=== PATIENT | male | born 1990 | race Caucasian/White ===

== ENCOUNTER 2018-08-20 12:55 | Emergency (ER) | payer SELFPAY ==
[~2018-08-20 12:55] MED LIST: AMOX-559 PO; CLIN300C99 PO; LOR5/325 PO; PRED20TA6 PO
--- NOTE | 2018-08-20 13:08 | ER Report ---
History and Physical Time Seen By MD: 13:08 Hx. of Stated Complaint: PT SNOWBOARDING WENT OVER A MOUND OF SNOW, FELL ON L SHOULDER, FELT A POP HPI/ROS CHIEF COMPLAINT: Fell on left shoulder while snowboarding HISTORY OF PRESENT ILLNESS: 28 year old male was snowboarding today. Fell onto his left shoulder. Brunt of the fall was on the shoulder, patient hit head also. Was wearing a helmet. When patient got to the end of the run, patient felt his shoulder wasn't right and walked over to life skills educator. Patient felt his clavicle and states there is a bump on it. Pain over the clavicle. No numbness or tingling down the shoulder. REVIEW OF SYSTEMS: Respiratory: No cough, no dyspnea. Cardiovascular: No chest pain, no palpitations. Gastrointestinal: No vomiting, no abdominal pain. Musculoskeletal: No back pain. Allergies: Coded Allergies: No Known Drug Allergies (Unverified , 03/08/16) Home Meds Active Scripts Hydrocodone Bit/Acetaminophen (HYDROCODON-ACETAMINOPHEN 5-325) 1 Each Tablet, 1 EACH PO Q4-6H PRN for PAIN, #12 TAB Prov:SERGIO BATES ENTERPRISE SYSTEMS ADMINISTRATOR 08/20/18 Hydrocodone Bit/Acetaminophen (HYDROCODON-ACETAMINOPHEN 5-325) 1 Each Tablet, 1 EACH PO Q4-6H, #14 TAB Prov:YAKOV FRIEDMAN MINE SURVEYOR 03/08/16 Clindamycin Hcl (CLINDAMYCIN HCL) 300 Mg Capsule, 300 MG PO TID, #30 CAPSULE TAKE 1 CAPSULE 3 TIMES A DAY Prov:YAKOV FRIEDMAN MINE SURVEYOR 03/08/16 Reported Medications Prednisone (PREDNISONE) 20 Mg Tablet, 60 MG PO DAILY, TAB 03/08/16 Amoxicillin/Pot Clav 875-125 Mg Tab (AUGMENTIN 875-125 TABLET) 1 Each Tablet, 1 TAB PO Q12H, TAB 03/08/16 Past Medical/Surgical History Patient does not have any chronic conditions. Patient had surgery on a broken ankle when he was in high school. Hardware was removed two years ago. Reviewed Nurses Notes: Yes Constitutional Vital Sign - Last 24 Hours 08/20/18 08/20/18 08/20/18 08/20/18 13:00 13:03 13:10 13:25 Temp 98.2 Pulse 79 83 104 Resp 20 B/P (MAP) 133/92 133/92 (106) Pulse Ox 98 97 95 O2 Delivery Room Air 08/20/18 08/20/18 08/20/18 08/20/18 13:40 13:42 13:55 14:10 Pulse 85 91 89 B/P (MAP) 152/97 (115) Pulse Ox 97 90 92 Physical Exam General Appearance: The patient is alert, has no immediate need for airway protection and no current signs of toxicity. Patient alerted and oriented. Patient did think it was Thursday instead of Thursday. Eyes: Pupils equal and round no injection. Respiratory: Chest is non tender, lungs are clear to auscultation. Cardiac: regular rate and rhythm Gastrointestinal: Abdomen is soft and non tender, no masses, bowel sounds normal. Musculoskeletal: Neck: Neck is supple and non tender. Extremities have full range of motion and are non tender. Left arm range of motion is diminished due to pain in the clavicle area. Step off palpated over left mid-clavicle. Tender to palpation. Skin: No rashes or lesions. Skin over left clavicle is ecchymotic. DIFFERENTIAL DIAGNOSIS: After history and physical exam differential diagnosis was considered for clavicle fracture, shoulder dislocation, concussion, intracranial bleed Medical Decision Making EKG/Imaging Imaging CT Cervical Spine Indication: False normal bordering. Comparison: None available. Technique: Axial CT imaging of the cervical spine was performed. 2-D sagittal and coronal CT reformats were also obtained. One of the following dose optimization techniques was utilized in the performance of this exam: automated exposure control; adjustment of the mA and/or kV according to the patient's size; or use of an iterative reconstruction technique. Specific details can be referenced in the facility's radiology CT exam operational policy. Findings: The vertebral bodies are aligned. No fracture or facet dislocation. There is minimal degenerative changes seen at the C5-6 level including small osteophytes and mild facet changes. No appreciable sequelae. No other significant degenerative changes. Endplates are maintained. No obvious disc herniation. Prevertebral soft tissues and surrounding soft tissues are unremarkable. Visualized brain is unremarkable. Small cyst/polyp seen in the inferior aspect both maxillary sinuses. The remaining sinuses and mastoids visualized are clear. Impression: 1. No acute osseous or acute alignment abnormality of the cervical spine 2. Small cyst/polyp in each maxillary sinus. Report Dictated By: Alin Govea at 08/20/2018 2:12 PM Report E-Signed By: Alin Govea at 08/20/2018 2:[address] Head without contrast Indication: Fall while snowboarding. Comparison: None available Technique: Axial CT images were obtained through the brain from the skull base to the vertex without administration of IV contrast. Reformatted coronal and sagittal images were also obtained. One of the following dose optimization techniques was utilized in the performance of this exam: automated exposure control; adjustment of the mA and/o r kV according to the patient's size; or use of an iterative reconstruction technique. Specific details can be referenced in the facility's radiology CT exam operational policy. Findings: No evidence of mass, mass effect, or midline shift. No acute intracranial hemorrhage or acute territorial infarction. No extra-axial fluid collection or hydrocephalus. No abnormal density. Hopper /white matter differentiation appears normal. Bony structures show no fractures or lesions. Small cyst/polyp is seen in each maxillary sinus. The remaining sinuses and mastoids visualized are clear. IMPRESSION: 1. No acute intracranial abnormality. No skull fracture. 2. Small cyst/polyp seen in each maxillary sinus. Report Dictated By: Alin Govea at 08/20/2018 2:06 PM Report E-Signed By: Alin Govea at 08/20/2018 2:11 PM Exam type: CLAVICLE LEFT History: Snowboarding accident with pain Comparison: None. Findings: There is oblique fracture to the midshaft left clavicle with 1.6 cm downward displacement of the distal fracture fragment IMPRESSION: 1. Oblique fracture to the midshaft left clavicle with 1.6 cm downward displacement of distal fragment Report Dictated By: Leslye Erickson MD at 08/20/2018 1:50 PM Report E-Signed By: Leslye Erickson MD at 08/20/2018 1:52 PM ED Course/Re-evaluation ED Course Patient was admitted to ED room and placed in a bed. History and physical were obtained. Differential diagnoses were considered. X-ray of the clavicle was obtained. Head and neck CT were obtained. Results were discussed with the patient. Sling was placed on patient. Consult was obtained with Dr. Murray. Referral was given to patient for ortho. Patient discharge instructions given. Patient discharged to home. Decision to Disposition Date: Aug 20, 2018 Decision to Disposition Time: 14:38 Depart Departure Latest Vital Signs Vital Signs Date Time Temp Pulse Resp B/P (MAP) Pulse Ox O2 Delivery O2 Flow Rate FiO2 08/20/18 14:10 89 92 08/20/18 13:42 152/97 (115) 08/20/18 13:00 98.2 20 Room Air Impression: Primary Impression: Closed left clavicular fracture Condition: Improved Disposition: HOME OR SELF-CARE Referrals: CHELLY MURRAY MD New Scripts Hydrocodone Bit/Acetaminophen (HYDROCODON-ACETAMINOPHEN 5-325) 1 Each Tablet 1 EACH PO Q4-6H PRN for PAIN, #12 TAB Prov: SERGIO BATES 08/20/18 Patient Instructions: Clavicle Fracture (ED) Additional Instructions: Limit activity by pain. Ice the shoulder 2-3 times a day for 20-30 minutes. Follow up with [facility], call Thursday to make an appointment. Return to the ER with uncontrollable pain or numbness to the arm. You may take Ibuprofen as needed for pain in addition to the pain medication. Don't take any additional Tylenol while on the pain medication. Wear the sling 23/24 hours a day, take it off to shower. Problem Qualifiers Primary Impression: Closed left clavicular fracture Encounter type: initial encounter Clavicle location: shaft Fracture alignment: displaced Qualified Codes: S42.022A - Displaced fracture of shaft of left clavicle, initial encounter for closed fracture SERGIO BATES Aug 20, 2018 13:08
[2018-08-20] MEDS ORDERED: ONDANSETRON 4 MG/2 ML VIAL IVP ONE (13:30)
[2018-08-20] MEDS ORDERED: MORPHINE 4 MG/ML SDV IVP ONE (13:30)
[2018-08-20 13:42] VITALS: BP 152/97
--- NOTE | 2018-08-20 13:56 | RADIOLOGY IMAGING REPORT ---
FACILITY: [facility] PATIENT NAME: Florseita Zuniga : 1990 MR: [id number] V: [id number] EXAM DATE: ORDERING PHYSICIAN: SERGIO BATES TECHNOLOGIST: [place] [facility] [place] Patient: Floresita Zuniga : 1990 Visit/Account:[id number] Date of Sevice: 08/20/2018 Exam type: CLAVICLE LEFT History: Snowboarding accident with pain Comparison: None. Findings: There is oblique fracture to the midshaft left clavicle with 1.6 cm downward displacement of the dist al fracture fragment IMPRESSION: 1. Oblique fracture to the midshaft left clavicle with 1.6 cm downward displacement of distal fragme nt Report Dictated By: Leslye Erickson MD at 08/20/2018 1:50 PM Report E-Signed By: Leslye Erickson MD at 08/20/2018 1:52 PM WSN:[id number]
--- NOTE | 2018-08-20 14:16 | RADIOLOGY IMAGING REPORT ---
FACILITY: [facility] PATIENT NAME: Floresita Zuniga : 1990 MR: [id number] V: [id number] EXAM DATE: ORDERING PHYSICIAN: SERGIO BATES TECHNOLOGIST: Location: [facility] Patient: Floresita Zuniga : 1990 Visit/Account:[id number] Date of Sevice: 08/20/2018 CT Head without contrast Indication: Fall while snowboarding. Comparison: None available Technique: Axial CT images were obtained through the brain from the skull base to the vertex without administration of IV contrast. Reformatted coronal and sagittal images were also obtained. One of the following dose optimization techniques was utilized in the performance of this exam: autom ated exposure control; adjustment of the mA and/or kV according to the patient's size; or use of an i terative reconstruction technique. Specific details can be referenced in the facility's radiology CT exam operational policy. Findings: No evidence of mass, mass effect, or midline shift. No acute intracranial hemorrhage or acute territorial infarction. No extra-axial fluid collection or hydrocephalus. No abnormal density. Hopper/white matter differentiat ion appears normal. Bony structures show no fractures or lesions. Small cyst/polyp is seen in each maxillary sinus. The remaining sinuses and mastoids visualized are c lear. IMPRESSION: 1. No acute intracranial abnormality. No skull fracture. 2. Small cyst/polyp seen in each maxillary sinus. Report Dictated By: Alin Govea at 08/20/2018 2:06 PM Report E-Signed By: Alin Govea at 08/20/2018 2:11 PM WSN:[id number]
--- NOTE | 2018-08-20 14:24 | RADIOLOGY IMAGING REPORT ---
FACILITY: [facility] [place] PATIENT NAME: Floresita Zuniga : 1990 MR: [id number] V: [id number] EXAM DATE: ORDERING PHYSICIAN: SERGIO BATES TECHNOLOGIST: Location: [facility] [place] Patient: Floresita Zuniga : 1990 Visit/Account:[id number] Date of Sevice: 08/20/2018 CT Cervical Spine Indication: False normal bordering. Comparison: None available. Technique: Axial CT imaging of the cervical spine was performed. 2-D sagittal and coronal CT reforma ts were also obtained. One of the following dose optimization techniques was utilized in the performance of this exam: autom ated exposure control; adjustment of the mA and/or kV according to the patient's size; or use of an i terative reconstruction technique. Specific details can be referenced in the facility's radiology CT exam operational policy. Findings: The vertebral bodies are aligned. No fracture or facet dislocation. There is minimal degenerative brodie nges seen at the C5-6 level including small osteophytes and mild facet changes. No appreciable sequel ae. No other significant degenerative changes. Endplates are maintained. No obvious disc herniation. Prevertebral soft tissues and surrounding soft tissues are unremarkable. Visualized brain is unremark able. Small cyst/polyp seen in the inferior aspect both maxillary sinuses. The remaining sinuses and mastoids visualized are clear. Impression: 1. No acute osseous or acute alignment abnormality of the cervical spine 2. Small cyst/polyp in each maxillary sinus. Report Dictated By: Alin Govea at 08/20/2018 2:12 PM Report E-Signed By: Alin Govea at 08/20/2018 2:18 PM WSN:[id number]
[2018-08-20] MEDS ORDERED: HYDR-385 PO (14:39)
== END 2018-08-20 15:00 | disposition home or self-care (01) ==
LOC: ER 13:34
DX: S42.022A Displaced fracture of shaft of left clavicle, initial encounter for closed fracture (principal); W18.30XA Fall on same level, unspecified, initial encounter; Y93.23 Activity, snow (alpine) (downhill) skiing, snowboarding, sledding, tobogganing and snow tubing
CPT/HCPCS: 70450; 72125; 73000; 96374; 96375; 99284; A4565; J2270; J2405

== ENCOUNTER 2018-08-30 02:20 | Day surgery (SDC) | payer SELFPAY ==
[~2018-08-30] VITALS: Ht 188 cm; Wt 78.5 kg
[~2018-08-30 02:20] MED LIST changes: +CHOL10005 PO; +HYDR-385 PO; +MULT1CAP59 PO
[2018-08-30] MEDS ORDERED: LIDOCAINE 2% IV 100 MG/5ML SYR ONE (08:29)
[2018-08-30] MEDS ORDERED: fentaNYL CITR 250 MCG/5 ML AMP ONE (08:29)
[2018-08-30] MEDS ORDERED: PROPOFOL EMUL(*) 10MG/ML 20 ML 20 ML ONE ×2 (08:41→09:39)
[2018-08-30 08:54] VITALS: BP 132/84
[2018-08-30] MEDS ORDERED: ceFAZolin(*) 2GM/D5W 50ML 50 ML IVPB ONE (08:55)
[2018-08-30] MEDS ORDERED: MIDAZOLAM 2 MG/2 ML VIAL IVP PRN (08:55)
[2018-08-30] MEDS ORDERED: LIDOCAINE/SOD BICARB 8.4% SYR ID ONE (08:55)
[2018-08-30] MEDS ORDERED: NORMOSOL R SOLN(*) 1000 ML BAG 1,000 ML IV PRN (08:55)
[2018-08-30] MEDS ORDERED: CELECOXIB 200 MG CAP PO ONE (08:55)
[2018-08-30] MEDS ORDERED: FAMOTIDINE 20 MG TAB PO ONE (08:55)
[2018-08-30] MEDS ORDERED: ROPIVACAINE 0.2% 20 ML VIAL ONE (09:21)
[2018-08-30] MEDS ORDERED: KETAMINE HCL 200 MG/20 ML MDV ONE ×3 (09:45→12:06)
[2018-08-30] MEDS ORDERED: DEXAMETHASONE SOD 4 MG/ML VIAL ONE (09:46)
[2018-08-30] MEDS ORDERED: ONDANSETRON 4 MG/2 ML VIAL ONE ×2 (09:47→12:08)
[2018-08-30] MEDS ORDERED: fentaNYL CITR 100 MCG/2 ML AMP ONE ×2 (10:27→11:30)
[2018-08-30] MEDS ORDERED: NS 0.9% IRRIGATION 1000ML PLCT IR ONE (10:36)
[2018-08-30] MEDS ORDERED: KET10 PO (11:17)
[2018-08-30] MEDS ORDERED: TRAM-420 PO (11:18)
[2018-08-30] MEDS ORDERED: OXYC5CAP21 PO (11:19)
[2018-08-30] MEDS ORDERED: KETOROLAC 30 MG/ML VIAL ONE (11:25)
[2018-08-30] MEDS ORDERED: ACETAMINOPHEN(*)1000 MG/100 ML 100 ML IVPB ONE (11:44)
--- NOTE | 2018-08-30 11:59 | RADIOLOGY IMAGING REPORT ---
FACILITY: [facility] PATIENT NAME: Floresita Zuniga : 1990 MR: [id number] V: [id number] EXAM DATE: ORDERING PHYSICIAN: JHOANA THAKKAR TECHNOLOGIST: Location: [facility] - [place] Patient: Floresita Zuniga : 1990 Visit/Account:[id number] Date of Sevice: 08/30/2018 EXAMINATION: Intraoperative fluoroscopy with imaging of the left clavicle 08/30/2018 9:18 AM HISTORY: ORIF LEFT CLAVICLE COMPARISON: Plain films 08/20/2018 FLUOROSCOPY TIME: 2.4 seconds DOSE: DAP was 0.0641 Gy*cm2. FINDINGS: Intraoperative fluoroscopy was provided. Imaging shows plate and screw fixation across th e midshaft clavicular fracture on the left. IMPRESSION: Intraoperative fluoroscopy for left clavicular ORIF. Report Dictated By: Percy Segovia MD at 08/30/2018 11:53 AM Report E-Signed By: Percy Segovia MD at 08/30/2018 11:54 AM WSN:[email or web address]
[2018-08-30 12:33] VITALS: BP 145/100
--- NOTE | 2018-08-30 12:33 | NUR ---
1233- PT BROUGHT TO STEP DOWN BAY 3, PT IS A/O X 4, VSS, PT REPORTS PAIN 8/10, PT HAS SIMPLE SLING IN PLACE TO LEFT SHOULDER, DRESSING TO LEFT SHOULDER IS CDI, ICE PACK IN PLACE, SBAR REPORT FROM OUMAR Klein RN 1240- DECREASED O2 TO 1LPM VIA NC 1250- OXY IR GIVEN PO PER Ronnie LAI RN 1254- Ronnie LAI RN SL IV 1304- VSS 1309- PT PLACED ON RA 1320- SBAR GIVEN TO Ronnie LAI RN
[2018-08-30] MEDS ORDERED: oxyCODONE HCL 5 MG CAP PO ONE (12:40)
[2018-08-30 13:04] VITALS: BP 136/94
[2018-08-30 13:25] VITALS: BP 143/94
[2018-08-30 13:26] VITALS: BP 138/95
--- NOTE | 2018-08-30 13:50 | NUR ---
1325 BEGAN DOING ORTHOSTATICS WITH PATIENT. HE DENIES ANY DIZZINESS OR LIGHTHEADEDNESS. 1326 PATIENT BEGAN STANDING. HE WAS STABLE ON HIS FEET 1327 PATIENT BEGAN GETTING DRESSED 1338 PATIENT VOIDED 1345 FINISHED DC INSTRUCTIONS WITH PATIENT AND HIS FRIEND. THEY VERBALIZED UNDERSTANDING. IV WAS DC'D WITH CATH INTACT. 1350 PATIENT WAS DC'D AND WAS AMBULATORY ON DISCHARGE. LUNGS ARE CLEAR. BOWEL SOUNDS ARE HYPERACTIVE. HE STATES HIS PAIN IS 7/10 AND STATES THIS IS TOLERABLE. HE HAS BRUISING ON HIS UPPER L. CHEST. HIS ARM REMAINS IN A SLING. DRESSING REMAINS DRY AND INTACT. HE IS ABLE TO WIGGLE HIS FINGERS, CAP REFILL IS LESS THAN 3 SECONDS, DENIES ANY NUMBNESS OR TINGLING, FINGERS ARE WARM AND PINK, PULSE IS STRONG. SEE DISCHARGE ASSESSMENT.
--- NOTE | 2018-08-30 14:10 | OPERATIVE REPORT 1 ---
EVENT DATE: August 30, 2018 SURGEON: Mariano Morin MD ANESTHESIOLOGIST: Charles Rubio MD ANESTHESIA: General. ORGANIC CHEMISTRY TEACHER: JAYDA Russo, GLUING PRESSMAN PREOPERATIVE DIAGNOSIS Left mid shaft clavicle fracture, displaced and comminuted. POSTOPERATIVE DIAGNOSIS Left mid shaft clavicle fracture, displaced and comminuted. PROCEDURE PERFORMED Left clavicle open reduction and internal fixation. IMPLANTS [employer]hew clavicular plate, seven hole, with four locking screws and two nonlocking screws. SPECIMENS None. COMPLICATIONS None. ESTIMATED BLOOD LOSS Less than 5 cc. DESCRIPTION OF PROCEDURE The patient was brought to the OR after receiving appropriate preoperative antibiotic and Dr. Rubio performed general anesthesia. He was placed in the beach chair position with appropriate padding and positioners. The left shoulder was then prepped and draped in the usual sterile fashion. Straight anterior approach was made to the fracture, keeping this anterior to the clavicle. Sharp dissection was carried out through the skin. I then utilized Bovie to achieve hemostasis and bring the dissection down between the trapezius and deltoid muscle directly under bone. We then delineated the fracture site utilizing Bovie and elevator and then a curette to remove the blood clot from the end of the bones. There was a small fragment posteriorly approximately 7 x 2 mm, another one anteriorly about 5 x 2 mm and then a more larger fragment about 1 x 5 mm. I did not feel that we could utilize a screw for this but were able to gibson it in as we open reduced the fracture and held in place with a K-wire. We then molded a plate to fit this, a seven hole clavicular plate by [employer]. We held this in place with a clamp. We placed locking screw in the central hole medially. There was one hole over the fracture site with a locking screw done in standard fashion. The central hole laterally was then filled with a locking screw. The most distal hole laterally was then filled with a locking screw in standard fashion. We then placed a locking screw in the most lateral to medial three holes, again locked in standard fashion. We then placed a standard screw to achieve compression in the most medial and the most medial to lateral three holes. We then utilized suture. The anterior butterfly fragment was somewhat wedged into the fracture site but we utilized 0 Vicryl to further fixate this. I then performed a Valsalva maneuver. There was no air. I then visualized this fluoroscopically as we had indirectly and were satisfied with the reduction and placement of screws. Copiously irrigated, closed the gaped fascial muscular plane with 0 Vicryl suture followed by 3-0 Vicryl for subcutaneous tissue and running 4-0 subcuticular Monocryl for the skin. The area was infiltrated with ropivacaine. We applied Steri-Strips and a dressing. The patient was extubated and taken to recovery in stable condition. He will be in a sling, nonweightbearing. Tylenol, Toradol, Tramadol and OxyIR recommended for pain. He will be seen two days out to change dressings and we will see him next week in the clinic also. TREAN
== END 2018-08-30 12:26 | disposition home or self-care (01) ==
LOC: OR 02:20
PROVIDERS: ATTEND Orthopaedic Surgery
DX: S42.022A Displaced fracture of shaft of left clavicle, initial encounter for closed fracture (principal)
CPT/HCPCS: 23515; 76000; J0131; J1100; J1885; J2001; J2250; J2405; J2704; J2795; J3010; J3490; A4565; C1713